=== PATIENT | male | born 1935 | race Caucasian/White ===

== ENCOUNTER 2017-08-30 23:32 | Inpatient (IN) | payer OTHER, MEDICARE ==
[~2017-08-30] VITALS: Ht 177.8 cm; Wt 83.4 kg
[~2017-08-30 23:32] MED LIST: ADVAIR 500/501 DISK IH; ALTACE10 MG PO; ASPIR 8181 M1 PO; ASPIR-TRIN325 M1 PO; AVAPRO300 MG PO; AVELOX400 MG PO; AVODART0.5 MG PO; BAYER ASPIRIN325 MG PO; CENTRUM COMPLE1 EACH PO; CENTRUM SILVER1 EACH PO; CILOSTAZOL100 MG PO; CILOSTAZOL50 MG PO; COMBIVENT RESPIM4 GM IH; COMBIVENT200 INHALA IH; CRESTOR20 MG PO; CYCLOBENZAPRINE10 MG PO; Combivent IH; FISH OIL 1,0001 EAC7 PO; FISH OIL PO; FLOMAX0.4 MG PO; FLOVENT 22120 INHALA IH; FOLIC ACID0.4 MG PO; FOLVITE0.5 MG PO; Flonase BOTH NARES; Flovent 220 mcg IH; METOPROLOL SUC100 MG PO; METOPROLOL SUCC50 MG PO; MIRALAX17 GM PO; NORVASC5 MG PO; Omega III EPA + DHA PO; PLETAL50 MG PO; POTASSIUM GLUCO2 MEQ PO; PRADAXA150 MG PO; PRIMIDONE50 MG PO; PROVENTIL,2.5 MG/3 M IH; SPIRIVA1 INHALATI IH; STALEVO 150 TA1 EACH PO; STALEVO 1501 TAB PO; TRICOR145 MG PO; TYLENOL EXTRA500 MG PO; Toprol XL PO; VITAMIN B COMP1 EACH PO; VITAMIN D31000 UNI2 PO; VITAMIN D400 INTUNI PO; VYTORIN 10-801 EACH PO; VYTORIN 10/81 TABLET PO; Vitamin D PO; ZANTAC300 MG PO; ZANTAC75 MG PO; ZYRTEC10 M2 PO
[2017-08-31] VITALS (19 sets, daily range): BP systolic 81–144; BP diastolic 34–66
[2017-08-31] MEDS ORDERED: HYDROCODON-ACE1 EAC7 PO (15:14)
[2017-09-01] VITALS (11 sets, daily range): BP systolic 100–129; BP diastolic 45–59
== END 2017-09-01 14:15 | disposition home or self-care (01) | DRG 39 ==
LOC: ENRESERV 23:32 → CANRESERV 23:32 → 2SOUTH 08-31 05:22 → ENRESERV 08-31 09:12 → 4WEST 08-31 09:56 → 2SOUTH 08-31 16:14 → 4WEST 09-01 14:15
DX: I65.21 Occlusion and stenosis of right carotid artery (principal); I48.0 Paroxysmal atrial fibrillation; E11.22 Type 2 diabetes mellitus with diabetic chronic kidney disease; I25.5 Ischemic cardiomyopathy; I12.9 Hypertensive chronic kidney disease with stage 1 through stage 4 chronic kidney disease, or unspecified chronic kidney disease; N18.9 Chronic kidney disease, unspecified; I25.10 Atherosclerotic heart disease of native coronary artery without angina pectoris; G47.33 Obstructive sleep apnea (adult) (pediatric); E78.2 Mixed hyperlipidemia; K21.9 Gastro-esophageal reflux disease without esophagitis; J45.909 Unspecified asthma, uncomplicated; I25.2 Old myocardial infarction; Z95.1 Presence of aortocoronary bypass graft; Z95.5 Presence of coronary angioplasty implant and graft; Z95.0 Presence of cardiac pacemaker; Z87.891 Personal history of nicotine dependence; Z79.82 Long term (current) use of aspirin; Z79.01 Long term (current) use of anticoagulants; Z88.0 Allergy status to penicillin
CPT/HCPCS: 87641; 93005; 94640; 94640 76; 94660; 94799; 99202; C1768; J1644; J2370; J2405; J2720; J2795; J3010; J7050; J7120

== ENCOUNTER 2017-10-18 22:04 | Inpatient (IN) | payer OTHER, MEDICARE ==
[~2017-10-18] VITALS: Ht 177.8 cm; Wt 82.6 kg
[~2017-10-18 22:04] MED LIST changes: +HYDROCODON-ACE1 EAC7 PO
[2017-10-19] VITALS (8 sets, daily range): BP systolic 96–146; BP diastolic 47–63
[2017-10-19] MEDS ORDERED: HYDROCODON-ACE1 EAC7 PO (18:43)
[2017-10-20] VITALS: BP 114/57
[2017-10-20 04:00] VITALS: BP 108/56
[2017-10-20 08:03] VITALS: BP 146/60
== END 2017-10-20 11:33 | disposition home or self-care (01) | DRG 39 ==
LOC: ENRESERV 22:04 → 2SOUTH 10-19 06:28 → ENRESERV 10-19 12:51 → 4WEST 10-19 13:57 → 2SOUTH 11-09 09:51
DX: I65.22 Occlusion and stenosis of left carotid artery (principal); J44.9 Chronic obstructive pulmonary disease, unspecified; E78.2 Mixed hyperlipidemia; I73.9 Peripheral vascular disease, unspecified; E66.3 Overweight; K21.9 Gastro-esophageal reflux disease without esophagitis; I48.0 Paroxysmal atrial fibrillation; I25.5 Ischemic cardiomyopathy; I25.10 Atherosclerotic heart disease of native coronary artery without angina pectoris; G47.33 Obstructive sleep apnea (adult) (pediatric); Z79.82 Long term (current) use of aspirin; Z79.51 Long term (current) use of inhaled steroids; Z88.0 Allergy status to penicillin; Z87.891 Personal history of nicotine dependence; Z68.26 Body mass index [BMI] 26.0-26.9, adult; I25.2 Old myocardial infarction; Z95.0 Presence of cardiac pacemaker; Z95.5 Presence of coronary angioplasty implant and graft
CPT/HCPCS: 87641; 93005; 94640; 94640 76; 94799; 99202; C1768; J0131; J1644; J1650; J2720; J2795; J3010; J7120; S0020